=== PATIENT | male | born 1955 | race Caucasian/White ===

== ENCOUNTER 2020-06-10 11:24 | Inpatient (IN) ==
[2020-06-10] MEDS ORDERED: 0.9 % Sodium Chloride 1,000 ML IVC SCH (11:45)
[2020-06-10 12:19] LABS: Bacteria,Urine Few per hpf (None-Few); Bilirubin,Urine Negative (Negative); Blood,Urine Moderate (Negative); Calcium Oxalate Crystals,Urine Present; Clarity,Urine Turbid (Clear); Color,Urine Yellow (Yellow); Glucose,Urine (UA) >=1000 mg/dL (Normal); Ketones,Urine 10 mg/dL (Negative); Leukocyte Esterase,Urine Large (Negative); Mucus,Urine Few per lpf (None-Few); Nitrite,Urine Negative (Negative); Protein,Urine 200 mg/dL (Neg-Trace); RBC,Urine 50-100 per hpf (0-3); Renal Epithelial Cells,Urine Few per hpf (None-Few); Specific Gravity,Urine 1.012 (1.010-1.025); Squamous Epithelial Cell,Urine Few per hpf (None-Few); Uric Acid Crystals,Urine Present; Urobilinogen,Urine Normal (Normal); WBC,Urine 50-100 per hpf (0-3)
[2020-06-10] MEDS ORDERED: cefTRIAXone 1,000 MG in 0.9 % Sodium Chloride Mini Bag 100 ML IVPB ONE (12:22)
[2020-06-10 12:34] LABS: Basophils # 0.1 K/mcL (0.0-0.2); Basophils % 0.9 %; Eosinophils # 0.2 K/mcL (0.0-0.6); Hematocrit 40.3 % (37.5-50.1); Immature Granulocytes % 0.4 % (0-4); Mean Corpuscular HGB Conc 32.3 g/dL (31.6-35.5); Mean Corpuscular Hemoglobin 28.3 pg (28.0-33.3); Mean Corpuscular Volume 87.8 fL (83.0-100.0); Monocytes # 0.6 K/mcL (0.0-1.3); Monocytes % 6.8 %; Neutrophils # 6.3 K/mcL (1.6-8.9); Platelet Count 277 K/mcL (140-400); Red Blood Count 4.59 M/mcL (4.19-5.50); Red Cell Distribution Width 13.2 % (11.5-14.5); Segmented Neutrophils % 77.9 %; White Blood Count 8.1 K/mcL (4.3-11.1)
[2020-06-10 12:59] LABS: BUN/Creatinine Ratio 22 (6-26); Blood Urea Nitrogen 49 mg/dL (8-23); Carbon Dioxide 14 mEq/L (23-29); Chloride 101 mEq/L (98-107); Glucose 596 mg/dL (70-105); Osmolality,Calculated 301 (280-300); Phosphorous 2.8 mg/dL (2.7-4.5); Potassium 3.9 mEq/L (3.5-5.1); Sodium 125 mEq/L (136-145); Troponin I < 0.03 ng/mL (< 0.04); eGFR For African Americans 36 (> 60); eGFR For Non-African Americans 30 (> 60)
[2020-06-10] MEDS ORDERED: 0.9 % Sodium Chloride 1,000 ML IVC ONE (13:02)
[2020-06-10] MEDS ORDERED: *HR* Dextrose 50 % in Water (Vial) 50 ML VIAL IVP PRN ×2 (13:04→13:15)
[2020-06-10] MEDS ORDERED: Potassium Chloride 40 MEQ, Lidocaine 1% 2 ML in 0.9 % Sodium Chloride 500 ML IVPB ONE (13:06)
[2020-06-10] MEDS ORDERED: 0.9 % Sodium Chloride 2,000 ML ONE (13:12)
[2020-06-10] MEDS ORDERED: CefTRIAXone 1,000 MG VIAL ONE (13:12)
[2020-06-10] MEDS ORDERED: 0.9 % Sodium Chloride Mini Bag 0 ML ONE (13:12)
[2020-06-10] MEDS ORDERED: Insulin Regular, Human 100 UNIT/ML IV PRN (13:15)
[2020-06-10] MEDS ORDERED: Insulin Human Regular 100 UNIT in 0.9 % Sodium Chloride 100 ML IVC SCH (13:15)
[2020-06-10] MEDS ORDERED: D5% in 0.45% NACL 1,000 ML IVC PRN (13:15)
[2020-06-10] MEDS ORDERED: D5% in 0.45% NACL w KCl 20 MEQ/1,000 ML MLS IVC PRN (13:15)
[2020-06-10] MEDS ORDERED: Insulin Regular, Human 100 UNIT/ML IV ONE (13:15)
[2020-06-10] MEDS ORDERED: Water for inj. (sterile) 10 ML ONE (13:22)
[2020-06-10] MEDS: cefTRIAXone 1,000 MG in Water for inj. (sterile) 10 ML IVP ONE ×2 (13:25→15:20)
[2020-06-10 13:31] LABS: VBG PH 7.07 pH Units (7.32-7.42)
[2020-06-10 13:32] LABS: VBG HCO3 -16 mEq/L (21-27); VBG PCO2 50 mmHg (41-51); VBG PO2 48 mmHg (25-50)
[2020-06-10] MEDS: Insulin Human Regular 100 UNIT in 0.9 % Sodium Chloride 100 ML IVC SCH (14:10)
[2020-06-10] MEDS ORDERED: Ondansetron 4 MG/2 ML VIAL IVP PRN (14:24)
[2020-06-10] MEDS: 0.9 % Sodium Chloride 1,000 ML IVC SCH (15:17)
[2020-06-10 16:30] LABS: Estimated Average Glucose 315 mg/dl; Hemoglobin A1C 12.6 %
[2020-06-10 16:50] LABS: Calcium 8.3 mg/dL (8.6-10.3); Potassium 3.4 mEq/L (3.5-5.1)
[2020-06-10 18:19] LABS: ABG Base Excess -13 mEq/L (-2 to 3); ABG HCO3 14 mEq/L (21-27); ABG Oxygen Saturation 96 % (95-98); ABG PCO2 34 mmHg (35-45); ABG PH 7.23 pH Units (7.32-7.45); ABG PO2 92 mmHg (85-104); ABG TCO2 15 mEq/L (20-26)
[2020-06-10 20:19] LABS: Calcium 8.5 mg/dL (8.6-10.3); Potassium 3.1 mEq/L (3.5-5.1)
[2020-06-10] MEDS: 0.9 % Sodium Chloride w KCl 20 MEQ/1,000 ML MLS IVC SCH ×3 (21:15→23:45)
[2020-06-10 21:43] LABS: VBG HCO3 16 mEq/L (21-27); VBG PCO2 49 mmHg (41-51); VBG PH 7.11 pH Units (7.32-7.42); VBG PO2 89 mmHg (25-50)
[2020-06-11 00:30] LABS: VBG HCO3 15 mEq/L (21-27); VBG PCO2 46 mmHg (41-51); VBG PH 7.12 pH Units (7.32-7.42); VBG PO2 41 mmHg (25-50)
[2020-06-11] MEDS ORDERED: Sodium Bicarbonate 50 MEQ/50 ML VIAL IVP ONE (00:41)
[2020-06-11 00:47] LABS: Calcium 7.9 mg/dL (8.6-10.3); Potassium 3.4 mEq/L (3.5-5.1)
[2020-06-11 00:50] LABS: Basophils # 0.1 K/mcL (0.0-0.2); Basophils % 0.7 %; Eosinophils # 0.2 K/mcL (0.0-0.6); Eosinophils % 3.3 %; Hematocrit 34.5 % (37.5-50.1); Hemoglobin 11.4 g/dL (12.9-16.9); Immature Granulocytes % 0.4 % (0-4); Lymphocytes # 1.1 K/mcL (0.6-4.6); Lymphocytes % 16.3 %; Mean Corpuscular Hemoglobin 28.6 pg (28.0-33.3); Mean Corpuscular Volume 86.5 fL (83.0-100.0); Mean Platelet Volume 10.9 fL (9.4-12.4); Monocytes # 0.5 K/mcL (0.0-1.3); Monocytes % 7.4 %; Platelet Count 286 K/mcL (140-400); Red Blood Count 3.99 M/mcL (4.19-5.50); Red Cell Distribution Width 13.1 % (11.5-14.5); Segmented Neutrophils % 71.9 %
[2020-06-11] MEDS: D5% in 0.45% NACL w KCl 20 MEQ/1,000 ML MLS IVC SCH ×4 (01:28→20:31)
[2020-06-11 04:16] LABS: VBG HCO3 15 mEq/L (21-27); VBG PCO2 42 mmHg (41-51); VBG PH 7.16 pH Units (7.32-7.42); VBG PO2 56 mmHg (25-50)
[2020-06-11 04:34] LABS: Calcium 7.2 mg/dL (8.6-10.3); Potassium 3.7 mEq/L (3.5-5.1)
[2020-06-11] MEDS ORDERED: Insulin DETEMIR 100 UNIT/ML X5UNITS SQ ONE ×2 (05:45→06:34)
[2020-06-11] MEDS ORDERED: *HR* Dextrose 50 % in Water (Vial) 50 ML VIAL IVP PRN (06:32)
[2020-06-11] MEDS ORDERED: D5% in Water 1,000 ML IVC PRN (06:32)
[2020-06-11] MEDS ORDERED: Dextrose Gel 15 GM/37.5 ML TUBE PO PRN ×2 (06:32)
[2020-06-11 06:51] LABS: VBG HCO3 15 mEq/L (21-27); VBG PCO2 43 mmHg (41-51); VBG PH 7.16 pH Units (7.32-7.42); VBG PO2 39 mmHg (25-50)
[2020-06-11 07:06] LABS: Calcium 7.4 mg/dL (8.6-10.3); Potassium 3.2 mEq/L (3.5-5.1)
[2020-06-11] MEDS ORDERED: Potassium Chloride 40 MEQ, Lidocaine 1% 2 ML in 0.9 % Sodium Chloride 500 ML IVPB ONE (07:46)
[2020-06-11] MEDS: Pantoprazole 40 MG VIAL IVP SCH ×2 (07:57→20:33)
[2020-06-11] MEDS: cefTRIAXone 1,000 MG in Water for inj. (sterile) 10 ML IVP SCH (07:58)
[2020-06-11] MEDS: Insulin LISPRO 300 UNITS/3 ML VIAL SQ SCH ×6 (07:59→20:31)
[2020-06-11] MEDS: Insulin Human Regular 100 UNIT in 0.9 % Sodium Chloride 100 ML IVC SCH ×2 (08:50→20:29)
[2020-06-11 10:19] LABS: VBG HCO3 15 mEq/L (21-27); VBG PCO2 37 mmHg (41-51); VBG PH 7.21 pH Units (7.32-7.42); VBG PO2 137 mmHg (25-50)
[2020-06-11 10:35] LABS: Calcium 7.4 mg/dL (8.6-10.3); Potassium 3.3 mEq/L (3.5-5.1)
[2020-06-11] MEDS: Potassium Chloride 20 MEQ in D5% in Water 1,000 ML IVC SCH ×4 (11:41→21:39)
[2020-06-11 14:21] LABS: VBG HCO3 15 mEq/L (21-27); VBG PCO2 41 mmHg (41-51); VBG PH 7.17 pH Units (7.32-7.42); VBG PO2 151 mmHg (25-50)
[2020-06-11 14:55] LABS: Calcium 7.8 mg/dL (8.6-10.3); Potassium 3.5 mEq/L (3.5-5.1)
[2020-06-11 18:45] LABS: VBG HCO3 14 mEq/L (21-27); VBG PCO2 39 mmHg (41-51); VBG PH 7.17 pH Units (7.32-7.42); VBG PO2 152 mmHg (25-50)
[2020-06-11 18:51] LABS: Potassium 3.6 mEq/L (3.5-5.1)
[2020-06-11] MEDS: 0.45 % Sodium Chloride w/KCl 20 MEQ/1,000 ML MLS IVC SCH ×3 (20:30→20:32)
[2020-06-11] MEDS: 0.9 % Sodium Chloride 1,000 ML IVC SCH ×3 (20:30→20:33)
[2020-06-11] MEDS: 0.9 % Sodium Chloride w KCl 20 MEQ/1,000 ML MLS IVC SCH (20:31)
[2020-06-11 20:39] LABS: ABG Base Excess -14 mEq/L (-2 to 3); ABG HCO3 12 mEq/L (21-27); ABG Oxygen Saturation 97 % (95-98); ABG PCO2 28 mmHg (35-45); ABG PH 7.25 pH Units (7.32-7.45); ABG PO2 98 mmHg (85-104); ABG TCO2 13 mEq/L (20-26)
[2020-06-11 20:49] LABS: Calcium 8.3 mg/dL (8.6-10.3); Potassium 3.6 mEq/L (3.5-5.1)
[2020-06-11] MEDS ORDERED: Insulin LISPRO 300 UNITS/3 ML VIAL SQ SCH (21:00)
[2020-06-12 02:23] LABS: Basophils # 0.1 K/mcL (0.0-0.2); Basophils % 0.9 %; Eosinophils # 0.3 K/mcL (0.0-0.6); Eosinophils % 3.1 %; Hematocrit 35.6 % (37.5-50.1); Hemoglobin 12.1 g/dL (12.9-16.9); Lymphocytes # 1.6 K/mcL (0.6-4.6); Lymphocytes % 17.7 %; Mean Corpuscular Hemoglobin 29.1 pg (28.0-33.3); Mean Corpuscular Volume 85.6 fL (83.0-100.0); Mean Platelet Volume 11.4 fL (9.4-12.4); Monocytes # 0.8 K/mcL (0.0-1.3); Monocytes % 9.3 %; Platelet Count 236 K/mcL (140-400); Red Blood Count 4.16 M/mcL (4.19-5.50); Red Cell Distribution Width 13.5 % (11.5-14.5); White Blood Count 8.8 K/mcL (4.3-11.1)
[2020-06-12 02:39] LABS: Calcium 8.3 mg/dL (8.6-10.3); Potassium 3.9 mEq/L (3.5-5.1)
[2020-06-12] MEDS: Potassium Chloride 20 MEQ in D5% in Water 1,000 ML IVC SCH (04:58)
[2020-06-12] MEDS: Insulin Human Regular 100 UNIT in 0.9 % Sodium Chloride 100 ML IVC SCH ×3 (06:04→21:09)
[2020-06-12] MEDS: Pantoprazole 40 MG VIAL IVP SCH (07:12)
[2020-06-12] MEDS ORDERED: Sodium Bicarbonate 75 MEQ in 0.45 % Sodium Chloride 1,000 ML IVC SCH ×3 (07:45→08:30)
[2020-06-12] MEDS ORDERED: Acetaminophen 325 MG TABLET PO PRN (08:02)
[2020-06-12] MEDS: cefTRIAXone 1,000 MG in Water for inj. (sterile) 10 ML IVP SCH (08:43)
[2020-06-12] MEDS ORDERED: D5% in Water 1,000 ML IVC SCH (09:00)
[2020-06-12] MEDS: Insulin LISPRO 300 UNITS/3 ML VIAL SQ SCH ×2 (09:39)
[2020-06-12] MEDS: Sodium Bicarbonate 150 MEQ in D5% in Water 1,000 ML IVC SCH ×2 (10:32→19:59)
[2020-06-12 11:55] LABS: Calcium 8.2 mg/dL (8.6-10.3); Potassium 3.3 mEq/L (3.5-5.1)
[2020-06-12] MEDS ORDERED: Potassium Chloride 40 MEQ, Lidocaine 1% 2 ML in 0.9 % Sodium Chloride 500 ML IVPB ONE (13:48)
[2020-06-12 18:19] LABS: VBG HCO3 19 mEq/L (21-27); VBG PCO2 41 mmHg (41-51); VBG PH 7.26 pH Units (7.32-7.42); VBG PO2 62 mmHg (25-50)
[2020-06-12 18:40] LABS: Calcium 8.3 mg/dL (8.6-10.3)
[2020-06-12] MEDS ORDERED: Gabapentin 300 MG CAPSULE PO PRN (21:52)
[2020-06-13 00:22] LABS: VBG HCO3 18 mEq/L (21-27); VBG PCO2 32 mmHg (41-51); VBG PH 7.35 pH Units (7.32-7.42); VBG PO2 119 mmHg (25-50)
[2020-06-13 00:39] LABS: Potassium 4.3 mEq/L (3.5-5.1)
[2020-06-13 01:43] LABS: Basophils # 0.1 K/mcL (0.0-0.2); Basophils % 0.9 %; Eosinophils # 0.2 K/mcL (0.0-0.6); Eosinophils % 2.5 %; Hemoglobin 10.7 g/dL (12.9-16.9); Immature Granulocytes % 0.7 % (0-4); Lymphocytes % 12.6 %; Mean Corpuscular HGB Conc 33.4 g/dL (31.6-35.5); Mean Corpuscular Hemoglobin 28.2 pg (28.0-33.3); Mean Corpuscular Volume 84.2 fL (83.0-100.0); Mean Platelet Volume 11.2 fL (9.4-12.4); Monocytes # 0.6 K/mcL (0.0-1.3); Monocytes % 7.3 %; Neutrophils # 5.8 K/mcL (1.6-8.9); Platelet Count 265 K/mcL (140-400); Red Cell Distribution Width 13.6 % (11.5-14.5); White Blood Count 7.6 K/mcL (4.3-11.1)
[2020-06-13 02:01] LABS: Calcium 7.9 mg/dL (8.6-10.3)
[2020-06-13] MEDS: Sodium Bicarbonate 150 MEQ in D5% in Water 1,000 ML IVC SCH (04:48)
[2020-06-13 07:12] LABS: Calcium 7.8 mg/dL (8.6-10.3); Potassium 3.5 mEq/L (3.5-5.1)
[2020-06-13] MEDS ORDERED: Insulin DETEMIR 100 UNIT/ML X5UNITS SQ ONE (07:32)
[2020-06-13] MEDS ORDERED: Insulin LISPRO 300 UNITS/3 ML VIAL SQ SCH (11:30)
[2020-06-13] MEDS: Insulin LISPRO 300 UNITS/3 ML VIAL SQ SCH ×5 (12:44→19:53)
[2020-06-13] MEDS: Insulin DETEMIR 100 UNIT/ML X5UNITS SQ SCH ×2 (13:13→21:19)
[2020-06-13 13:51] LABS: Thyroid Stimulating Hormone 1.946 mcIU/mL (0.340-5.600)
[2020-06-13] MEDS: *HR* Heparin 5,000 UNIT/ML VIAL SQ SCH (18:05)
[2020-06-13] MEDS ORDERED: hydrOXYzine pamoate 25 MG CAPSULE PO SCH (21:00)
[2020-06-13] MEDS ORDERED: Latanoprost 2.5 ML BOTTLE BOTH EYES SCH (21:00)
[2020-06-14 00:55] LABS: VBG HCO3 27 mEq/L (21-27); VBG PCO2 52 mmHg (41-51); VBG PH 7.33 pH Units (7.32-7.42); VBG PO2 53 mmHg (25-50)
[2020-06-14 01:00] LABS: Basophils # 0.1 K/mcL (0.0-0.2); Eosinophils # 0.2 K/mcL (0.0-0.6); Eosinophils % 2.3 %; Hematocrit 32.4 % (37.5-50.1); Hemoglobin 10.8 g/dL (12.9-16.9); Immature Granulocytes % 0.6 % (0-4); Lymphocytes # 1.6 K/mcL (0.6-4.6); Lymphocytes % 17.3 %; Mean Corpuscular HGB Conc 33.3 g/dL (31.6-35.5); Mean Corpuscular Hemoglobin 28.3 pg (28.0-33.3); Mean Corpuscular Volume 84.8 fL (83.0-100.0); Mean Platelet Volume 11.1 fL (9.4-12.4); Monocytes # 0.8 K/mcL (0.0-1.3); Monocytes % 8.3 %; Neutrophils # 6.4 K/mcL (1.6-8.9); Platelet Count 267 K/mcL (140-400); Red Blood Count 3.82 M/mcL (4.19-5.50); Red Cell Distribution Width 13.9 % (11.5-14.5); Segmented Neutrophils % 70.5 %; White Blood Count 9.1 K/mcL (4.3-11.1)
[2020-06-14 01:12] LABS: Calcium 8.3 mg/dL (8.6-10.3); Potassium 3.9 mEq/L (3.5-5.1)
[2020-06-14] MEDS: *HR* Heparin 5,000 UNIT/ML VIAL SQ SCH (05:22)
[2020-06-14] MEDS: Insulin LISPRO 300 UNITS/3 ML VIAL SQ SCH ×4 (08:11→11:12)
[2020-06-14] MEDS: Insulin DETEMIR 100 UNIT/ML X5UNITS SQ SCH (08:17)
[2020-06-14 11:53] VITALS: BP 141/90
== END 2020-06-14 17:10 | disposition home or self-care (01) | DRG 638 ==
LOC: 2NNU 11:24 → EMEROOARM 11:24 → SUATTDRO 14:23 → 2NNU 18:21
PROVIDERS: ADMIT Internal Medicine; ATTEND Internal Medicine

== ENCOUNTER 2022-09-03 13:25 | Inpatient (IN) ==
[2022-09-03 15:32] LABS: Basophils # 0.1 K/mcL (0.0-0.2); Basophils % 0.7 %; Eosinophils % 0.3 %; Hematocrit 45.9 % (37.5-50.1); Immature Granulocytes % 0.5 % (0-4); Lymphocytes # 0.5 K/mcL (0.6-4.6); Lymphocytes % 4.6 %; Mean Corpuscular HGB Conc 30.5 g/dL (31.6-35.5); Mean Corpuscular Hemoglobin 28.6 pg (28.0-33.3); Mean Corpuscular Volume 93.7 fL (83.0-100.0); Mean Platelet Volume 10.9 fL (9.4-12.4); Monocytes # 0.2 K/mcL (0.0-1.3); Monocytes % 2.1 %; Neutrophils # 9.3 K/mcL (1.6-8.9); Platelet Count 306 K/mcL (140-400); Red Cell Distribution Width 12.7 % (11.5-14.5); Segmented Neutrophils % 91.8 %; White Blood Count 10.2 K/mcL (4.3-11.1)
[2022-09-03] MEDS: 0.9 % Sodium Chloride 1,000 ML IVC SCH ×2 (15:36→17:06)
[2022-09-03 15:37] LABS: VBG HCO3 15 mEq/L (21-27); VBG PCO2 49 mmHg (41-51); VBG PH 7.09 pH Units (7.32-7.42); VBG PO2 37 mmHg (25-50)
[2022-09-03] MEDS ORDERED: Ondansetron 4 MG/2 ML VIAL IVP ONE (15:40)
[2022-09-03 15:58] LABS: BUN/Creatinine Ratio 21 (6-26); Blood Urea Nitrogen 69 mg/dL (8-23); Carbon Dioxide 13 mEq/L (23-29); Chloride 93 mEq/L (98-107); Glucose 761 mg/dL (70-105); Magnesium 2.1 mg/dL (1.6-2.6); Osmolality,Calculated 315 (280-300); Phosphorous 5.2 mg/dL (2.7-4.5); Potassium 5.7 mEq/L (3.5-5.1); Sodium 124 mEq/L (136-145); Troponin I < 0.03 ng/mL (< 0.04)
[2022-09-03 16:18] LABS: Estimated Average Glucose 214 mg/dl; Hemoglobin A1C 9.1 %
[2022-09-03 16:19] LABS: Adenovirus Not Detected (Not Detect); Bordetella Pertussis Not Detected (Not Detect); Chlamydophila pneumoniae Not Detected (Not Detect); Coronavirus 229E Not Detected (Not Detect); Coronavirus HKU1 Not Detected (Not Detect); Coronavirus NL63 Not Detected (Not Detect); Coronavirus OC43 Not Detected (Not Detect); Human Metapneumovirus Not Detected (Not Detect); Human Rhinovirus/Enterovirus Not Detected (Not Detect); Influenza A Subtype 2009 H1 Not Detected (Not Detect); Influenza B Not Detected (Not Detect); Mycoplasma pneumoniae Not Detected (Not Detect); Parainfluenza Virus 1 Not Detected (Not Detect); Parainfluenza Virus 2 Not Detected (Not Detect); Parainfluenza Virus 3 Not Detected (Not Detect); Parainfluenza Virus 4 Not Detected (Not Detect); Respiratory Syncytial Virus Not Detected (Not Detect); SARS-CoV-2 Not Detected (Not Detect)
[2022-09-03 16:24] LABS: Bacteria,Urine Few per hpf (None-Few); Bilirubin,Urine Negative (Negative); Blood,Urine Moderate (Negative); Clarity,Urine Turbid (Clear); Color,Urine Yellow (Yellow); Glucose,Urine (UA) >=1000 mg/dL (Normal); Ketones,Urine 10 mg/dL (Negative); Leukocyte Esterase,Urine Large (Negative); Mucus,Urine Few per lpf (None-Few); Nitrite,Urine Negative (Negative); Protein,Urine 70 mg/dL (Neg-Trace); RBC,Urine 50-100 per hpf (0-3); Specific Gravity,Urine 1.013 (1.010-1.025); Urobilinogen,Urine Normal (Normal); WBC,Urine 50-100 per hpf (0-3)
[2022-09-03] MEDS ORDERED: 0.9 % Sodium Chloride 1,000 ML IVC ONE (18:19)
[2022-09-03] MEDS ORDERED: Insulin Regular, Human 100 UNIT/ML IV PRN (18:19)
[2022-09-03] MEDS ORDERED: D5% in 0.45% NACL 1,000 ML IVC PRN (18:19)
[2022-09-03] MEDS ORDERED: *HR* Dextrose 50 % in Water (Syg) 50 ML SYRINGE IVP PRN (18:19)
[2022-09-03] MEDS ORDERED: Naloxone 0.4 MG/ML INJ IVP PRN (18:27)
[2022-09-03] MEDS ORDERED: Ondansetron 4 MG/2 ML VIAL IVP PRN (18:27)
[2022-09-03] MEDS ORDERED: 0.9 % Sodium Chloride 1,000 ML IVC SCH (18:30)
[2022-09-03 21:30] LABS: Calcium 8.4 mg/dL (8.6-10.3); Potassium 4.6 mEq/L (3.5-5.1)
[2022-09-03] MEDS ORDERED: 0.9 % Sodium Chloride w KCl 20 MEQ/1,000 ML MLS IVC SCH (22:30)
[2022-09-04] MEDS: D5% in 0.45% NACL w KCl 20 MEQ/1,000 ML MLS IVC PRN ×3 (01:56→10:00)
[2022-09-04 03:09] LABS: Calcium 7.6 mg/dL (8.6-10.3); Potassium 3.7 mEq/L (3.5-5.1)
[2022-09-04 03:21] LABS: Estimated Average Glucose 217 mg/dl; Hemoglobin A1C 9.2 %
[2022-09-04 11:04] LABS: Basophils % 0.5 %; Eosinophils # 0.2 K/mcL (0.0-0.6); Hematocrit 37.6 % (37.5-50.1); Hemoglobin 12.2 g/dL (12.9-16.9); Immature Granulocytes % 0.2 % (0-4); Lymphocytes # 1.2 K/mcL (0.6-4.6); Lymphocytes % 14.6 %; Mean Corpuscular HGB Conc 32.4 g/dL (31.6-35.5); Mean Corpuscular Hemoglobin 28.4 pg (28.0-33.3); Mean Corpuscular Volume 87.4 fL (83.0-100.0); Mean Platelet Volume 10.5 fL (9.4-12.4); Monocytes # 0.6 K/mcL (0.0-1.3); Monocytes % 7.9 %; Neutrophils # 5.9 K/mcL (1.6-8.9); Platelet Count 251 K/mcL (140-400); Red Cell Distribution Width 12.8 % (11.5-14.5); Segmented Neutrophils % 73.8 %; White Blood Count 8.1 K/mcL (4.3-11.1)
[2022-09-04 11:24] LABS: Calcium 7.5 mg/dL (8.6-10.3); Potassium 4.2 mEq/L (3.5-5.1)
[2022-09-04] MEDS: Insulin DETEMIR 100 UNIT/ML X5UNITS SUBQ SCH ×2 (13:47→22:08)
[2022-09-04] MEDS ORDERED: *HR* HYDROcodone/Acet 5/325 mg TABLET PO PRN (16:47)
[2022-09-04] MEDS ORDERED: D5% in Water 1,000 ML IVC PRN (22:37)
[2022-09-04] MEDS ORDERED: *HR* Dextrose 50 % in Water (Syg) 50 ML SYRINGE IVP PRN (22:37)
[2022-09-04] MEDS ORDERED: Dextrose Gel 15 GM/37.5 ML TUBE PO PRN ×2 (22:37)
[2022-09-04] MEDS: Insulin LISPRO 300 UNITS/3 ML VIAL SUBQ SCH (22:54)
[2022-09-05 04:54] LABS: Basophils # 0.1 K/mcL (0.0-0.2); Basophils % 0.9 %; Eosinophils # 0.3 K/mcL (0.0-0.6); Eosinophils % 3.6 %; Hemoglobin 11.8 g/dL (12.9-16.9); Immature Granulocytes % 0.3 % (0-4); Lymphocytes # 1.4 K/mcL (0.6-4.6); Lymphocytes % 18.4 %; Mean Corpuscular HGB Conc 31.9 g/dL (31.6-35.5); Mean Corpuscular Hemoglobin 28.3 pg (28.0-33.3); Mean Corpuscular Volume 88.7 fL (83.0-100.0); Mean Platelet Volume 11.1 fL (9.4-12.4); Monocytes # 0.7 K/mcL (0.0-1.3); Monocytes % 9.2 %; Platelet Count 268 K/mcL (140-400); Red Blood Count 4.17 M/mcL (4.19-5.50); Segmented Neutrophils % 67.6 %; White Blood Count 7.4 K/mcL (4.3-11.1)
[2022-09-05 05:18] LABS: Calcium 8.5 mg/dL (8.6-10.3); Potassium 4.6 mEq/L (3.5-5.1)
[2022-09-05] MEDS ORDERED: cefTRIAXone 1,000 MG in Water for inj. (sterile) 10 ML IVP SCH (09:00)
[2022-09-05] MEDS: Lactobacillus 1 EACH CAP.SPRINK PO SCH (09:26)
[2022-09-05] MEDS: Insulin DETEMIR 100 UNIT/ML X5UNITS SUBQ SCH ×3 (09:27→21:00)
[2022-09-05] MEDS: Ampicillin/Sulbactam 3,000 MG in 0.9 % Sodium Chloride Mini Bag 100 ML IVPB SCH ×4 (09:28→20:31)
[2022-09-05] MEDS: Insulin LISPRO 300 UNITS/3 ML VIAL SUBQ SCH ×3 (12:32→20:29)
[2022-09-05] MEDS ORDERED: 0.9 % Sodium Chloride 500 ML IVC ONE (16:42)
[2022-09-05] MEDS ORDERED: Insulin Human Regular 8 UNIT in 0.9 % Sodium Chloride 10 ML IV ONE (16:43)
[2022-09-05] MEDS ORDERED: *HR* Labetalol 20 MG/4 ML SYRINGE IVP PRN (16:48)
[2022-09-05] MEDS: Ketoconazole 2% CRM 15 GM TUBE TP SCH (20:30)
[2022-09-06 05:25] LABS: Basophils # 0.1 K/mcL (0.0-0.2); Basophils % 0.7 %; Eosinophils # 0.3 K/mcL (0.0-0.6); Eosinophils % 3.7 %; Hematocrit 36.4 % (37.5-50.1); Immature Granulocytes % 0.3 % (0-4); Lymphocytes # 1.3 K/mcL (0.6-4.6); Mean Corpuscular Hemoglobin 28.8 pg (28.0-33.3); Mean Corpuscular Volume 87.3 fL (83.0-100.0); Monocytes # 0.8 K/mcL (0.0-1.3); Monocytes % 10.6 %; Neutrophils # 4.6 K/mcL (1.6-8.9); Platelet Count 261 K/mcL (140-400); Red Blood Count 4.17 M/mcL (4.19-5.50); Red Cell Distribution Width 13.1 % (11.5-14.5); Segmented Neutrophils % 65.7 %; White Blood Count 7.1 K/mcL (4.3-11.1)
[2022-09-06 05:41] LABS: Calcium 8.8 mg/dL (8.6-10.3); Potassium 3.7 mEq/L (3.5-5.1)
[2022-09-06] MEDS: Ampicillin/Sulbactam 3,000 MG in 0.9 % Sodium Chloride Mini Bag 100 ML IVPB SCH ×2 (06:22→12:09)
[2022-09-06] MEDS: Insulin LISPRO 300 UNITS/3 ML VIAL SUBQ SCH ×2 (07:33→12:08)
[2022-09-06] MEDS ORDERED: Fenofibrate 54 MG TABLET PO SCH (09:00)
[2022-09-06] MEDS: Lactobacillus 1 EACH CAP.SPRINK PO SCH (09:26)
[2022-09-06] MEDS: Ketoconazole 2% CRM 15 GM TUBE TP SCH (09:28)
[2022-09-06] MEDS: Insulin DETEMIR 100 UNIT/ML X5UNITS SUBQ SCH (09:33)
[2022-09-06 15:15] VITALS: BP 165/95; PULSE 97; TEMP 97.8; O2SAT 96
[2022-09-06] MEDS ORDERED: Flu Vac QV 22-23 (6MOS UP)/PF 0.5 ML SYRINGE IM ONE (15:29)
[2022-09-06 21:40] LABS: Amphetamines NEGATIVE ng/mL (Cutoff 20); Barbiturates NEGATIVE ng/mL (Cutoff 50); Benzodiazepines NEGATIVE ng/mL (Cutoff 50); Buprenorphine NEGATIVE ng/mL (Cutoff 1); Cocaine NEGATIVE ng/mL (Cutoff 20); Methadone NEGATIVE ng/mL (Cutoff 25); Methamphetamines NEGATIVE ng/mL (Cutoff 20); Opiates NEGATIVE ng/mL (Cutoff 20); Phencyclidine NEGATIVE ng/mL (Cutoff 10)
== END 2022-09-06 16:42 | disposition home or self-care (01) | DRG 637 ==
LOC: 2NNU 13:25 → EMEROOARM 13:25 → SUATTDRO 18:40 → 2NNU 19:52 → 3ANU 09-04 16:02
PROVIDERS: ADMIT Hospitalist; ATTEND Student in an Organized Health Care Education/Training Program

== ENCOUNTER 2022-09-08 14:38 | Inpatient (IN) ==
[2022-09-08 15:26] LABS: VBG HCO3 17 mEq/L (21-27); VBG PCO2 48 mmHg (41-51); VBG PH 7.15 pH Units (7.32-7.42); VBG PO2 37 mmHg (25-50)
[2022-09-08 15:27] LABS: Basophils # 0.1 K/mcL (0.0-0.2); Eosinophils # 0.1 K/mcL (0.0-0.6); Eosinophils % 1.5 %; Hematocrit 42.3 % (37.5-50.1); Hemoglobin 13.2 g/dL (12.9-16.9); Immature Granulocytes % 0.6 % (0-4); Lymphocytes # 0.7 K/mcL (0.6-4.6); Lymphocytes % 10.1 %; Mean Corpuscular HGB Conc 31.2 g/dL (31.6-35.5); Mean Corpuscular Hemoglobin 28.2 pg (28.0-33.3); Mean Corpuscular Volume 90.4 fL (83.0-100.0); Mean Platelet Volume 10.9 fL (9.4-12.4); Monocytes # 0.3 K/mcL (0.0-1.3); Monocytes % 4.2 %; Neutrophils # 5.9 K/mcL (1.6-8.9); Platelet Count 277 K/mcL (140-400); Red Blood Count 4.68 M/mcL (4.19-5.50); Segmented Neutrophils % 82.6 %; White Blood Count 7.2 K/mcL (4.3-11.1)
[2022-09-08] MEDS: 0.9 % Sodium Chloride 1,000 ML IVC SCH ×2 (15:29→16:37)
[2022-09-08 15:48] LABS: BUN/Creatinine Ratio 19 (6-26); Blood Urea Nitrogen 45 mg/dL (8-23); Calcium 9.3 mg/dL (8.6-10.3); Carbon Dioxide 14 mEq/L (23-29); Chloride 100 mEq/L (98-107); Glucose 570 mg/dL (70-105); Magnesium 1.7 mg/dL (1.6-2.6); Osmolality,Calculated 296 (280-300); Phosphorous 3.7 mg/dL (2.7-4.5); Salicylate < 2.5 mg/dL (15.0-30.0); Sodium 124 mEq/L (136-145); Troponin I < 0.03 ng/mL (< 0.04)
[2022-09-08] MEDS ORDERED: Insulin Regular, Human 100 UNIT/ML IV ONE (15:58)
[2022-09-08] MEDS ORDERED: 0.9 % Sodium Chloride 1,000 ML IVC SCH (16:00)
[2022-09-08] MEDS ORDERED: Iopamidol - 370 500 ML MLS IVP ONE (16:00)
[2022-09-08 16:59] LABS: Amorphous Sediment,Urine Few per hpf (None-Few); Bacteria,Urine Few per hpf (None-Few); Bilirubin,Urine Negative (Negative); Blood,Urine Large (Negative); Clarity,Urine Ex.Turbid (Clear); Color,Urine Yellow (Yellow); Glucose,Urine (UA) >=1000 mg/dL (Normal); Ketones,Urine Trace mg/dL (Negative); Leukocyte Esterase,Urine Large (Negative); Mucus,Urine Few per lpf (None-Few); Nitrite,Urine Negative (Negative); PH,Urine 7.5 pH Units (5.0-8.0); Protein,Urine 70 mg/dL (Neg-Trace); RBC,Urine 50-100 per hpf (0-3); Specific Gravity,Urine 1.011 (1.010-1.025); Triple Phosphate Crystal,Urine Present per hpf; Urobilinogen,Urine Normal (Normal); WBC,Urine 30-50 per hpf (0-3)
[2022-09-08] MEDS ORDERED: cefTRIAXone 1,000 MG in 0.9 % Sodium Chloride 10 ML IVP ONE (17:17)
[2022-09-08] MEDS ORDERED: Insulin Regular, Human 100 UNIT/ML IV PRN ×2 (17:51)
[2022-09-08] MEDS ORDERED: Naloxone 0.4 MG/ML INJ IVP PRN (18:00)
[2022-09-08] MEDS ORDERED: Ondansetron 4 MG/2 ML VIAL IVP PRN (18:00)
[2022-09-08 19:16] LABS: VBG HCO3 11 mEq/L (21-27); VBG PCO2 30 mmHg (41-51); VBG PH 7.18 pH Units (7.32-7.42); VBG PO2 160 mmHg (25-50)
[2022-09-08 19:36] LABS: Amphetamine Screen,Urine Negative ng/mL (Cutoff=1000); Barbiturate Screen,Urine Negative ng/mL (Cutoff=200); Benzodiazepines Screen,Urine Negative ng/mL (Cutoff=200); Cannabinoid Screen,Urine Negative ng/mL (Cutoff = 50); Cocaine Screen,Urine Negative ng/mL (Cutoff= 300); Opiate Screen,Urine Negative ng/mL (Cutoff=300); Phencyclidine Screen,Urine Negative ng/mL (Cutoff=25)
[2022-09-08] MEDS: 0.9 % Sodium Chloride w KCl 20 MEQ/1,000 ML MLS IVC SCH ×2 (19:42→22:40)
[2022-09-08] MEDS: Ampicillin 2,000 MG in 0.9 % Sodium Chloride Mini Bag 100 ML IVPB SCH (19:50)
[2022-09-08] MEDS: Ertapenem 1,000 MG in 0.9 % Sodium Chloride Mini Bag 100 ML IVPB SCH (20:08)
[2022-09-08 20:15] LABS: Calcium 8.8 mg/dL (8.6-10.3); Potassium 4.1 mEq/L (3.5-5.1)
[2022-09-08] MEDS: *HR* Heparin 5,000 UNIT/ML VIAL SQ SCH (22:39)
[2022-09-09 00:05] LABS: VBG HCO3 18 mEq/L (21-27); VBG PCO2 48 mmHg (41-51); VBG PH 7.18 pH Units (7.32-7.42); VBG PO2 73 mmHg (25-50)
[2022-09-09 00:25] LABS: Calcium 8.3 mg/dL (8.6-10.3); Potassium 3.5 mEq/L (3.5-5.1)
[2022-09-09] MEDS: 0.9 % Sodium Chloride w KCl 20 MEQ/1,000 ML MLS IVC SCH ×6 (00:48→14:42)
[2022-09-09] MEDS: D5% in 0.45% NACL w KCl 20 MEQ/1,000 ML MLS IVC PRN ×5 (00:51→18:35)
[2022-09-09] MEDS: *HR* Dextrose 50 % in Water (Syg) 50 ML SYRINGE IVP PRN (01:33)
[2022-09-09] MEDS: Ampicillin 2,000 MG in 0.9 % Sodium Chloride Mini Bag 100 ML IVPB SCH ×4 (01:34→19:28)
[2022-09-09 03:58] LABS: Basophils % 0.6 %; Eosinophils # 0.2 K/mcL (0.0-0.6); Eosinophils % 2.9 %; Hematocrit 33.7 % (37.5-50.1); Immature Granulocytes % 0.4 % (0-4); Mean Corpuscular HGB Conc 32.9 g/dL (31.6-35.5); Mean Corpuscular Hemoglobin 28.7 pg (28.0-33.3); Mean Corpuscular Volume 87.1 fL (83.0-100.0); Mean Platelet Volume 10.3 fL (9.4-12.4); Monocytes # 0.7 K/mcL (0.0-1.3); Monocytes % 9.6 %; Neutrophils # 5.2 K/mcL (1.6-8.9); Platelet Count 266 K/mcL (140-400); Red Blood Count 3.87 M/mcL (4.19-5.50); Segmented Neutrophils % 72.5 %; White Blood Count 7.2 K/mcL (4.3-11.1)
[2022-09-09 03:59] LABS: Hemoglobin 11.1 g/dL (12.9-16.9)
[2022-09-09 04:28] LABS: Albumin 3.1 g/dL (3.5-5.7); Albumin/Globulin Ratio 1.2 (1.1-2.2); Bilirubin,Total 0.4 mg/dL (0.3-1.0); Calcium 7.8 mg/dL (8.6-10.3); Globulin 2.6 g/dL (2.4-3.5); Magnesium 1.5 mg/dL (1.6-2.6); Phosphorous 1.8 mg/dL (2.7-4.5); Potassium 3.6 mEq/L (3.5-5.1); Total Protein 5.7 g/dL (6.4-8.9)
[2022-09-09] MEDS: *HR* Heparin 5,000 UNIT/ML VIAL SQ SCH ×3 (05:21→21:15)
[2022-09-09 06:46] LABS: Estimated Average Glucose 229 mg/dl; Hemoglobin A1C 9.6 %
[2022-09-09] MEDS ORDERED: Insulin Regular, Human 100 UNIT/ML IV PRN ×2 (06:56)
[2022-09-09] MEDS ORDERED: Potassium Phosphate 44 MEQ in 0.9 % Sodium Chloride 250 ML IVPB ONE (07:50)
[2022-09-09 08:36] LABS: VBG HCO3 15 mEq/L (21-27); VBG PCO2 37 mmHg (41-51); VBG PH 7.22 pH Units (7.32-7.42); VBG PO2 176 mmHg (25-50)
[2022-09-09 08:54] LABS: Calcium 7.6 mg/dL (8.6-10.3)
[2022-09-09 12:12] LABS: VBG HCO3 18 mEq/L (21-27); VBG PCO2 48 mmHg (41-51); VBG PH 7.19 pH Units (7.32-7.42); VBG PO2 83 mmHg (25-50)
[2022-09-09 12:22] LABS: Calcium 7.7 mg/dL (8.6-10.3); Potassium 4.1 mEq/L (3.5-5.1)
[2022-09-09 16:28] LABS: VBG HCO3 18 mEq/L (21-27); VBG PCO2 46 mmHg (41-51); VBG PH 7.19 pH Units (7.32-7.42); VBG PO2 72 mmHg (25-50)
[2022-09-09 16:39] LABS: Calcium 7.6 mg/dL (8.6-10.3); Potassium 4.2 mEq/L (3.5-5.1)
[2022-09-09] MEDS: Ertapenem 1,000 MG in 0.9 % Sodium Chloride Mini Bag 100 ML IVPB SCH (17:20)
[2022-09-09 19:13] LABS: Estimated Average Glucose 226 mg/dl; Hemoglobin A1C 9.5 %
[2022-09-09 20:36] LABS: VBG HCO3 16 mEq/L (21-27); VBG PCO2 44 mmHg (41-51); VBG PH 7.18 pH Units (7.32-7.42); VBG PO2 130 mmHg (25-50)
[2022-09-09 20:48] LABS: Calcium 7.6 mg/dL (8.6-10.3); Potassium 4.5 mEq/L (3.5-5.1)
[2022-09-09] MEDS ORDERED: Insulin DETEMIR 100 UNIT/ML X5UNITS SUBQ STA (20:48)
[2022-09-10 00:43] LABS: VBG HCO3 15 mEq/L (21-27); VBG PCO2 37 mmHg (41-51); VBG PH 7.21 pH Units (7.32-7.42); VBG PO2 136 mmHg (25-50)
[2022-09-10 01:06] LABS: Calcium 7.9 mg/dL (8.6-10.3)
[2022-09-10] MEDS: Ampicillin 2,000 MG in 0.9 % Sodium Chloride Mini Bag 100 ML IVPB SCH ×4 (02:19→20:51)
[2022-09-10] MEDS: D5% in 0.45% NACL w KCl 20 MEQ/1,000 ML MLS IVC PRN (02:47)
[2022-09-10 04:43] LABS: Basophils # 0.1 K/mcL (0.0-0.2); Basophils % 0.8 %; Eosinophils # 0.4 K/mcL (0.0-0.6); Eosinophils % 5.5 %; Hematocrit 31.4 % (37.5-50.1); Immature Granulocytes % 0.5 % (0-4); Lymphocytes # 1.6 K/mcL (0.6-4.6); Mean Corpuscular HGB Conc 31.8 g/dL (31.6-35.5); Mean Corpuscular Hemoglobin 28.3 pg (28.0-33.3); Mean Platelet Volume 10.2 fL (9.4-12.4); Monocytes # 0.6 K/mcL (0.0-1.3); Monocytes % 9.3 %; Neutrophils # 3.9 K/mcL (1.6-8.9); Platelet Count 259 K/mcL (140-400); Red Blood Count 3.53 M/mcL (4.19-5.50); Red Cell Distribution Width 13.2 % (11.5-14.5); Segmented Neutrophils % 58.9 %; White Blood Count 6.6 K/mcL (4.3-11.1)
[2022-09-10 05:04] LABS: Albumin 2.7 g/dL (3.5-5.7); Albumin/Globulin Ratio 1.1 (1.1-2.2); Bilirubin,Total 0.3 mg/dL (0.3-1.0); Calcium 7.8 mg/dL (8.6-10.3); Globulin 2.5 g/dL (2.4-3.5); Magnesium 1.4 mg/dL (1.6-2.6); Phosphorous 1.9 mg/dL (2.7-4.5); Potassium 3.7 mEq/L (3.5-5.1); Total Protein 5.2 g/dL (6.4-8.9)
[2022-09-10] MEDS: *HR* Dextrose 50 % in Water (Syg) 50 ML SYRINGE IVP PRN (06:00)
[2022-09-10] MEDS: *HR* Heparin 5,000 UNIT/ML VIAL SQ SCH ×3 (06:13→20:52)
[2022-09-10] MEDS: Fenofibrate 54 MG TABLET PO SCH (08:00)
[2022-09-10] MEDS ORDERED: D5% in Water 1,000 ML IVC PRN (14:37)
[2022-09-10] MEDS ORDERED: Dextrose Gel 15 GM/37.5 ML TUBE PO PRN ×2 (14:37)
[2022-09-10] MEDS: Insulin LISPRO 300 UNITS/3 ML VIAL SUBQ SCH (16:44)
[2022-09-10] MEDS: Ertapenem 1,000 MG in 0.9 % Sodium Chloride Mini Bag 100 ML IVPB SCH (16:45)
[2022-09-10] MEDS ORDERED: Insulin DETEMIR 100 UNIT/ML X5UNITS SUBQ SCH (21:00)
[2022-09-10] MEDS ORDERED: Insulin LISPRO 300 UNITS/3 ML VIAL SUBQ SCH (21:00)
[2022-09-11] MEDS: Ampicillin 2,000 MG in 0.9 % Sodium Chloride Mini Bag 100 ML IVPB SCH ×2 (02:20→08:29)
[2022-09-11 03:06] LABS: Calcium 8.1 mg/dL (8.6-10.3); Potassium 4.7 mEq/L (3.5-5.1)
[2022-09-11] MEDS: *HR* Heparin 5,000 UNIT/ML VIAL SQ SCH (06:44)
[2022-09-11] MEDS ORDERED: 0.9 % Sodium Chloride 1,000 ML IVC SCH (08:00)
[2022-09-11] MEDS: Insulin LISPRO 300 UNITS/3 ML VIAL SUBQ SCH ×2 (08:28→11:46)
[2022-09-11] MEDS: Fenofibrate 54 MG TABLET PO SCH (08:29)
[2022-09-11 10:57] VITALS: TEMP 97.7
[2022-09-11] MEDS ORDERED: Moderna Covid-19 Vaccine 100MCG/0.5mL IM ONE (12:08)
[2022-09-11 13:14] VITALS: BP 150/92; PULSE 92; O2SAT 97
== END 2022-09-11 14:05 | disposition home or self-care (01) | DRG 638 ==
LOC: 2NNU 14:38 → EMEROOARM 14:38 → 2NNU 18:31
PROVIDERS: ADMIT Internal Medicine; ATTEND Internal Medicine